=== PATIENT | male | born 1965 | race African-American/Black ===

== ENCOUNTER 2018-01-24 10:13 | Inpatient (IN) | payer OTHER ==
[2018-01-24 11:34] VITALS: BMI 28.5
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
[2018-01-24] MEDS ORDERED: NICOTINE POLACRILEX 2 MG GUM BUC PRN (14:19)
[2018-01-24] MEDS ORDERED: LOPERAMIDE HCL 2 MG CAPSULE PO PRN (14:19)
[2018-01-24] MEDS ORDERED: ACETAMINOPHEN 325 MG TABLET (FP) PO PRN (14:19)
[2018-01-24] MEDS ORDERED: MAG HYDROX/AL HYDROX/SIMETH 30 ML UNIT-DOSE CUP PO PRN (14:19)
[2018-01-24] MEDS ORDERED: MAGNESIUM HYDROX 2400MG/30ML ORAL SUSPENSION 30 ML CUP PO PRN (14:19)
[2018-01-24] MEDS ORDERED: hydrOXYzine PAMOATE 25 MG CAPSULE (FP) PO PRN (14:19)
[2018-01-24] MEDS ORDERED: chlordiazePOXIDE HCL 25 MG CAPSULE PO PRN (14:19)
[2018-01-24] MEDS ORDERED: IBUPROFEN 400 MG TABLET (FP) PO PRN (14:19)
[2018-01-24] MEDS ORDERED: P-EPHED 60MG/TRIPROLIDI 2.5MG TABLET PO PRN (14:19)
[2018-01-24] MEDS ORDERED: guaiFENesin/D-METHORPHAN HB 10 ML UNIT-DOSE CUPS PO PRN (14:19)
[2018-01-24] MEDS ORDERED: MENTHOL/PHENOL 1 EACH UD MM PRN (14:19)
[2018-01-24] MEDS ORDERED: MAGNESIUM CITRATE 300 ML BOTTLE PO PRN (14:19)
--- NOTE | 2018-01-24 14:42 | CONSULT ---
[facility] Psychiatric Consult - Data Date of interview: 01/24/18 Admission source: [facility] Identifying data: THIS 52 YEARS OLD MALE WITH HEROIN,ALCOHOL DEPENDENCE,COCAINE AND MARIJUANA DEPENDENCE,SEEKING DETOX,WITHDRAWAL SYMPTOM,. LAST DETOX IN [facility]. HYPERTENSION,BPH,BORDERLINED DM,HEPATITIS C,. POSITIVE PPD TREATED. LONGEST PERIOD OF SOBRIETY 19 MONTHS. NICOTINE DEPENDENCE Substance Abuse History: Urine Drug Screen Results: THC-Marijuana, LUIS-Cocaine, OPI-Opiates, BZO-Benzodiazepines, MTD-Methadone. - Smoking Cessation. Smoking history: Current every day smoker. Have you smoked in the past 12 months: Yes. Aproximately how many cigarettes per day: 30. Hx Chewing Tobacco Use: No. Initiated information on smoking cessation: Yes. 'Breaking Loose' booklet given : 01/24/18. - Substance & Tx. History. Hx Alcohol Use: Yes. Hx Substance Use : Yes. Substance Use Type: Alcohol, Cocaine, Heroin, Marijuana. Hx Substance Use Treatment: Yes (11/29 [facility]). - Substances Abused. Heroin. Route: Inhalation. Frequency: Daily. Amount used: 7-8 BAGS. Age of first use : 27. Date of Last Use: 01/24/18. Alcohol. Route: Oral. Frequency: Daily. Amount used: 7/25OZ BEER. Age of first use: 15. Date of Last Use: . Cocaine. Route: Inhalation. Frequency: Daily. Amount used: 100$. Age of first use: 28. Date of Last Use: 01/23/18. Marijuana/Hashish. Route : Smoking. Frequency: 1-2 times per week. Amount used: 40$. Age of first use : 17. Date of Last Use: 01/23/18 Additional Comment: Urine Drug Screen Results: THC-Marijuana, LUIS-Cocaine, OPI- Opiates, BZO-Benzodiazepines, MTD-Methadone
[2018-01-24] MEDS ORDERED: METHADONE HCL 10 MG TABLET (FOR DETOX USE ONLY) PO ONE ×2 (15:10→23:00)
[2018-01-24] MEDS ORDERED: chlordiazePOXIDE HCL 25 MG CAPSULE PO ONE (15:10)
[2018-01-24 17:18] LABS: URINE APPEARANCE CLEAR; URINE BILIRUBIN NEGATIVE (NEGATIVE); URINE BLOOD NEGATIVE (NEGATIVE); URINE COLOR YELLOW; URINE GLUCOSE (UA) NEGATIVE (NEGATIVE); URINE KETONE TRACE (NEGATIVE); URINE LEUK ESTERASE NEGATIVE (NEGATIVE); URINE NITRITE NEGATIVE (NEGATIVE); URINE PROTEIN NEGATIVE (NEGATIVE); URINE UROBILINOGEN 4.0 E.U/dl mg/dL (0.2-1.0)
[2018-01-24] MEDS ORDERED: METHADONE HCL 10 MG TABLET (FOR DETOX USE ONLY) ONE (18:05)
[2018-01-24] MEDS: NICOTINE 21 MG/24 HOURS TOPICAL PATCH TD SCH (18:07)
[2018-01-24] MEDS: chlordiazePOXIDE HCL 25 MG CAPSULE PO SCH ×2 (18:07→23:05)
[2018-01-24] MEDS: THIAMINE HCL 100 MG TABLET (FP) PO SCH (23:05)
[2018-01-25] MEDS: chlordiazePOXIDE HCL 25 MG CAPSULE PO SCH ×4 (05:43→23:14)
[2018-01-25] MEDS ORDERED: METHADONE HCL 10 MG TABLET (FOR DETOX USE ONLY) PO SCH (10:00)
[2018-01-25 10:03] LABS: HEMATOCRIT 44.7 % (35.4-49); HEMOGLOBIN 14.8 GM/dL (11.7-16.9); MCH 29.7 pg (25.7-33.7); MEAN PLT VOLUME 10.5 fl (7.5-11.1); PLATELET COUNT 153 K/MM3 (134-434); RBC 4.96 M/mm3 (4.00-5.60); RDW 14.3 % (11.9-15.9); WHITE BLOOD COUNT 5.9 K/mm3 (4.0-10.0)
[2018-01-25] MEDS: TAMSULOSIN HCL 0.4 MG CAP.ER.24H (FP) PO SCH (10:17)
[2018-01-25] MEDS: HYDROCHLOROTHIAZIDE 25 MG TABLET (FP) PO SCH (10:17)
[2018-01-25] MEDS: ASPIRIN 81 MG CHEWABLE TABLETS PO SCH (10:18)
[2018-01-25] MEDS: PRENATAL VITAMINS W/ FOLIC ACID TABLET (FP) PO SCH (10:18)
[2018-01-25] MEDS: NICOTINE 21 MG/24 HOURS TOPICAL PATCH TD SCH (10:20)
[2018-01-25 10:25] LABS: ALBUMIN 3.2 g/dl (3.4-5.0); ANION GAP 9 (8-16); BLOOD UREA NITROGEN 14 mg/dL (7-18); CALCIUM 8.7 mg/dL (8.5-10.1); CHLORIDE 106 mmol/L (98-107); CO2 27 mmol/L (21-32); CREATININE 1.2 mg/dL (0.7-1.3); GLUCOSE,RANDOM 103 mg/dL (74-106); POTASSIUM 4.2 mmol/L (3.5-5.1); SGOT/AST 32 U/L (15-37); SGPT/ALT 36 U/L (12-78); SODIUM 142 mmol/L (136-145)
[2018-01-25 10:28] LABS: ALK PHOS 91 U/L (45-117); BILIRUBIN,TOTAL 0.5 mg/dL (0.2-1.0); TOT PROT 6.9 g/dl (6.4-8.2)
--- NOTE | 2018-01-25 10:37 | CONSULT ---
[facility] Psychiatric Consult - Data Date of interview: 01/25/18 Admission source: [facility] Identifying data: Pt. is a 52 year old single male, without kids, unemployed, and homeless. This is patient's first admission to [facility]. Pt. admitted to detox for heroin, cocaine, cannabis, and alcohol dependence. Substance Abuse History: Following information confirmed with Mr. Oropeza: - Smoking Cessation. Smoking history: Current every day smoker. Have you smoked in the past 12 months: Yes. Aproximately how many cigarettes per day: 30. Hx Chewing Tobacco Use: No. Initiated information on smoking cessation: Yes. ' Breaking Loose' booklet given: 01/24/18. - Substance & Tx. History. Hx Alcohol Use: Yes. Hx Substance Use: Yes. Substance Use Type: Alcohol, Cocaine , Heroin, Marijuana. Hx Substance Use Treatment: Yes (11/29 [facility]). - Substances Abused. Heroin. Route: Inhalation. Frequency: Daily. Amount used: 7-8 BAGS. Age of first use: 27. Date of Last Use: 01/24/18. Alcohol. Route: Oral. Frequency: Daily. Amount used: 7/25OZ BEER. Age of first use: 15. Date of Last Use: 01/24/18. Cocaine. Route: Inhalation. Frequency: Daily. Amount used: 100$. Age of first use: 28. Date of Last Use: 01/23/18. Marijuana/Hashish. Route: Smoking. Frequency: 1-2 times per week. Amount used: 40$. Age of first use: 17. Date of Last Use: 01/23/18 Medical History: Hypertension Psychiatric History: Pt. denies h/o psychiatric hospitalizations, outpatient care, and suicide attempts. Physical/Sexual Abuse/Trauma History: Denies. Mental Status Exam - Mental Status Exam Alert and Oriented to: Time, Place, Person Cognitive Function: Good Patient Appearance: Unkempt Mood: Withdrawn Affect: Mood Congruent Patient Behavior: Fatigued, Asleep (Pt. able to be awaken to complete interview. ) Speech Pattern: Delayed Voice Loudness: Normal Thought Process: Goal Oriented Thought Disorder: Not Present Hallucinations: Denies Suicidal Ideation: Denies Homicidal Ideation: Denies Insight/Judgement: Poor Sleep: Fair Appetite: Fair Muscle strength/Tone: Normal Gait/Station: Other (Did not observe patient's gait.) Psychiatric Findings - Problem List ([place] 1, 2,3) (1) Cocaine dependence Current Visit: Yes Status: Acute (2) Alcohol dependence with uncomplicated withdrawal Current Visit: Yes Status: Acute (3) Cannabis dependence Current Visit: Yes Status: Acute (4) Opioid dependence with withdrawal Current Visit: Yes Status: Acute (5) Drug-induced mood disorder Current Visit: Yes Status: Suspected - Initial Treatment Plan Initial Treatment Plan: Psychoeducation provided. Detoxification in progress. Observation.
--- NOTE | 2018-01-25 12:01 | PN ---
S CIWA - CIWA Score Nausea/Vomitin Muscle Tremors: 2 Anxiety: 2 Agitation: 2 Paroxysmal Sweats: 3 Orientation: 0-Oriented Tacttile Disturbances: 2-Mild Itch/Numbness/Burn Auditory Disturbances: 0-None Visual Disturbances: 0-None Headache: 0-None Present CIWA-Ar Total Score: 13 BHS COWS - Scale Resting Pulse: 1= [place] 81-100 Sweatin= Chills/Flushing Restless Observation: 1= Difficult to Sit Still Pupil Size: 1= Pupils >than Normal Bone or Joint Aches: 2= Severe Diffuse Aches Runny Nose/ Eye Tearin= Nasal Congestion GI Upset > 30mins: 1= Stomach Cramp Tremor Observation of Outstretched Hands: 1= Tremor [place], Not Seen Yawning Observation: 1= 1-2x During Session Anxiety or Irritability: 1=Feels Anxious/Irritable Goose Flesh Skin: 0=Smooth Skin COWS Score: 11 S Progress Note (SOAP) Subjective: interrupted sleep, sweats, lbp Objective: 01/25/18 12:00 Vital Signs Temperature 97.2 F L 01/25/18 10:35 Pulse Rate 60 01/25/18 10:35 Respiratory Rate 20 01/25/18 10:35 Blood Pressure 143/93 01/25/18 10:35 O2 Sat by Pulse Oximetry (%) Laboratory Tests 01/24/18 01/25/18 01/25/18 14:00 06:00 06:00 WBC 5.9 RBC 4.96 Hgb 14.8 Hct 44.7 MCV 90.0 MCH 29.7 MCHC 33.0 RDW 14.3 Plt Count 153 MPV 10.5 Sodium 142 Potassium 4.2 Chloride 106 Carbon Dioxide 27 Anion Gap 9 BUN 14 Creatinine 1.2 Creat Clearance w eGFR > 60 Random Glucose 103 D Calcium 8.7 Total Bilirubin 0.5 D AST 32 D ALT 36 D Alkaline Phosphatase 91 D Total Protein 6.9 Albumin 3.2 L Urine Color Yellow Urine Appearance Clear Urine pH 5.0 Ur Specific [place] 1.023 Urine Protein Negative Urine Glucose (UA) Negative Urine Ketones Trace H Urine Blood Negative Urine Nitrite Negative Urine Bilirubin Negative Urine Urobilinogen 4.0 e.u/dl Ur Leukocyte Esterase Negative RPR Titer 01/25/18 06:00 WBC RBC Hgb Hct MCV MCH MCHC RDW Plt Count MPV Sodium Potassium Chloride Carbon Dioxide Anion Gap BUN Creatinine Creat Clearance w eGFR Random Glucose Calcium Total Bilirubin AST ALT Alkaline Phosphatase Total Protein Albumin Urine Color Urine Appearance Urine pH Ur Specific [place] Urine Protein Urine Glucose (UA) Urine Ketones Urine Blood Urine Nitrite Urine Bilirubin Urine Urobilinogen Ur Leukocyte Esterase RPR Titer Nonreactive pt aox3 in nad lying in bed Assessment: 01/25/18 12:00 withdrawal sx's Plan: cont. detox increase fluids motrin prn
--- NOTE | 2018-01-25 15:11 | EKG ---
Test Reason : Blood Pressure : / mmHG Vent. Rate : 054 BPM Atrial Rate : 054 BPM P-R Int : 186 ms QRS Dur : 108 ms QT Int : 466 ms P-R-T Axes : 067 023 -39 degrees QTc Int : 441 ms SINUS BRADYCARDIA POSSIBLE LEFT ATRIAL ENLARGEMENT INFERIOR INFARCT , AGE UNDETERMINED POSSIBLE ANTERIOR INFARCT , AGE UNDETERMINED ABNORMAL ECG NO PREVIOUS ECGS AVAILABLE Confirmed by HAN FOX MD ([id number]) on 01/25/2018 3:11:40 PM Referred By: Confirmed By:HAN FOX MD
[2018-01-25] MEDS: THIAMINE HCL 100 MG TABLET (FP) PO SCH (23:14)
[2018-01-26] MEDS: chlordiazePOXIDE HCL 25 MG CAPSULE PO SCH ×2 (05:40→10:18)
[2018-01-26] MEDS: PRENATAL VITAMINS W/ FOLIC ACID TABLET (FP) PO SCH (10:17)
[2018-01-26] MEDS: ASPIRIN 81 MG CHEWABLE TABLETS PO SCH (10:17)
[2018-01-26] MEDS: NICOTINE 21 MG/24 HOURS TOPICAL PATCH TD SCH (10:18)
[2018-01-26] MEDS: TAMSULOSIN HCL 0.4 MG CAP.ER.24H (FP) PO SCH (10:18)
[2018-01-26] MEDS: METHADONE HCL 5 MG TABLET (FOR DETOX USE ONLY) PO SCH (10:18)
[2018-01-26] MEDS: HYDROCHLOROTHIAZIDE 25 MG TABLET (FP) PO SCH (10:18)
--- NOTE | 2018-01-26 14:33 | PN ---
[facility] CIWA - CIWA Score Nausea/Vomitin Muscle Tremors: 3 Anxiety: 3 Agitation: 3 Paroxysmal Sweats: 1-Minimal Palms Moist Orientation: 0-Oriented Tacttile Disturbances: 1-Very Mild Itch/Numbness Auditory Disturbances: 1-Very Mild Visual Disturbances: 0-None Headache: 2-Mild CIWA-Ar Total Score: 17 BHS COWS - Scale Resting Pulse: 0= [place] 80 or Below Sweatin= Chills/Flushing Restless Observation: 3= Extraneous Movement Pupil Size: 1= Pupils >than Normal Bone or Joint Aches: 2= Severe Diffuse Aches Runny Nose/ Eye Tearin= Runny Nose/Eyes GI Upset > 30mins: 2= Nausea/Diarrhea Tremor Observation of Outstretched Hands: 2= Slight Tremor Visible Yawning Observation: 1= 1-2x During Session Anxiety or Irritability: 2=Irritable/Anxious Goose Flesh Skin: 0=Smooth Skin COWS Score: 16 S Progress Note (SOAP) Subjective: ALERT,IRRITABLE,ANXIOUS,INTERRUPTED SLEEP,TREMOR,PAIN IN THE BODY AND BACK Objective: 01/26/18 14:30 Vital Signs Temperature 97.9 F 01/26/18 13:58 Pulse Rate 56 L 01/26/18 13:58 Respiratory Rate 18 01/26/18 13:58 Blood Pressure 140/101 01/26/18 13:58 O2 Sat by Pulse Oximetry (%) KG SINUS BRADYCARDIA, 54/PA,INVERTED T IN V6 NO CHEST PAIN,NO SOB,NO DIZZINESS Laboratory Last Values WBC 5.9 K/mm3 (4.0-10.0) 01/25/18 06:00 RBC 4.96 M/mm3 (4.00-5.60) 01/25/18 06:00 Hgb 14.8 GM/dL (11.7-16.9) 01/25/18 06:00 Hct 44.7 % (35.4-49) 01/25/18 06:00 MCV 90.0 fl (80-96) 01/25/18 06:00 MCH 29.7 pg (25.7-33.7) 01/25/18 06:00 MCHC 33.0 g/dl (32.0-35.9) 01/25/18 06:00 RDW 14.3 % (11.9-15.9) 01/25/18 06:00 Plt Count 153 K/MM3 (134-434) 01/25/18 06:00 MPV 10.5 fl (7.5-11.1) 01/25/18 06:00 Sodium 142 mmol/L (136-145) 01/25/18 06:00 Potassium 4.2 mmol/L (3.5-5.1) 01/25/18 06:00 Chloride 106 mmol/L (98-107) 01/25/18 06:00 Carbon Dioxide 27 mmol/L (21-32) 01/25/18 06:00 Anion Gap 9 (8-16) 01/25/18 06:00 BUN 14 mg/dL (7-18) 01/25/18 06:00 Creatinine 1.2 mg/dL (0.7-1.3) 01/25/18 06:00 Creat Clearance w eGFR > 60 (>60) 01/25/18 06:00 Random Glucose 103 mg/dL (74-106) D 01/25/18 06:00 Calcium 8.7 mg/dL (8.5-10.1) 01/25/18 06:00 Total Bilirubin 0.5 mg/dL (0.2-1.0) D 01/25/18 06:00 AST 32 U/L (15-37) D 01/25/18 06:00 ALT 36 U/L (12-78) D 01/25/18 06:00 Alkaline Phosphatase 91 U/L (45-117) D 01/25/18 06:00 Total Protein 6.9 g/dl (6.4-8.2) 01/25/18 06:00 Albumin 3.2 g/dl (3.4-5.0) L 01/25/18 06:00 Urine Color Yellow 01/24/18 14:00 Urine Appearance Clear 01/24/18 14:00 Urine pH 5.0 (5.0-8.0) 01/24/18 14:00 Ur Specific [place] 1.023 (1.001-1.035) 01/24/18 14:00 Urine Protein Negative (NEGATIVE) 01/24/18 14:00 Urine Glucose (UA) Negative (NEGATIVE) 01/24/18 14:00 Urine Ketones Trace (NEGATIVE) H 01/24/18 14:00 Urine Blood Negative (NEGATIVE) 01/24/18 14:00 Urine Nitrite Negative (NEGATIVE) 01/24/18 14:00 Urine Bilirubin Negative (NEGATIVE) 01/24/18 14:00 Urine Urobilinogen 4.0 e.u/dl mg/dL (0.2-1.0) 01/24/18 14:00 Ur Leukocyte Esterase Negative (NEGATIVE) 01/24/18 14:00 RPR Titer Nonreactive (NONREACTIVE) 01/25/18 06:00 Assessment: 01/26/18 14:32 WITHDRAWAL SYMPTOM Plan: CONTINUE DETOX
[2018-01-26] MEDS: chlordiazePOXIDE 5 MG CAPSULE PO SCH ×2 (18:26→22:36)
[2018-01-26] MEDS: THIAMINE HCL 100 MG TABLET (FP) PO SCH (22:36)
[2018-01-27] MEDS: chlordiazePOXIDE 5 MG CAPSULE PO SCH ×2 (06:38→10:41)
[2018-01-27] MEDS ORDERED: HYDROCHLOROTHIAZIDE 25 MG TABLET (FP) PO ONE ×2 (10:26→14:30)
--- NOTE | 2018-01-27 10:36 | PN ---
BHS Progress Note (SOAP) Subjective: sweat tremor anxiety restlessness irritable joint aches with muscle pain stuffy nose Objective: 01/27/18 10:35 Vital Signs Temperature 97.2 F L 01/27/18 09:55 Pulse Rate 61 01/27/18 09:55 Respiratory Rate 20 01/27/18 09:55 Blood Pressure 150/86 01/27/18 09:55 O2 Sat by Pulse Oximetry (%) Laboratory Last Values WBC 5.9 K/mm3 (4.0-10.0) 01/25/18 06:00 RBC 4.96 M/mm3 (4.00-5.60) 01/25/18 06:00 Hgb 14.8 GM/dL (11.7-16.9) 01/25/18 06:00 Hct 44.7 % (35.4-49) 01/25/18 06:00 MCV 90.0 fl (80-96) 01/25/18 06:00 MCH 29.7 pg (25.7-33.7) 01/25/18 06:00 MCHC 33.0 g/dl (32.0-35.9) 01/25/18 06:00 RDW 14.3 % (11.9-15.9) 01/25/18 06:00 Plt Count 153 K/MM3 (134-434) 01/25/18 06:00 MPV 10.5 fl (7.5-11.1) 01/25/18 06:00 Sodium 142 mmol/L (136-145) 01/25/18 06:00 Potassium 4.2 mmol/L (3.5-5.1) 01/25/18 06:00 Chloride 106 mmol/L (98-107) 01/25/18 06:00 Carbon Dioxide 27 mmol/L (21-32) 01/25/18 06:00 Anion Gap 9 (8-16) 01/25/18 06:00 BUN 14 mg/dL (7-18) 01/25/18 06:00 Creatinine 1.2 mg/dL (0.7-1.3) 01/25/18 06:00 Creat Clearance w eGFR > 60 (>60) 01/25/18 06:00 Random Glucose 103 mg/dL (74-106) D 01/25/18 06:00 Calcium 8.7 mg/dL (8.5-10.1) 01/25/18 06:00 Total Bilirubin 0.5 mg/dL (0.2-1.0) D 01/25/18 06:00 AST 32 U/L (15-37) D 01/25/18 06:00 ALT 36 U/L (12-78) D 01/25/18 06:00 Alkaline Phosphatase 91 U/L (45-117) D 01/25/18 06:00 Total Protein 6.9 g/dl (6.4-8.2) 01/25/18 06:00 Albumin 3.2 g/dl (3.4-5.0) L 01/25/18 06:00 Urine Color Yellow 01/24/18 14:00 Urine Appearance Clear 01/24/18 14:00 Urine pH 5.0 (5.0-8.0) 01/24/18 14:00 Ur Specific [place] 1.023 (1.001-1.035) 01/24/18 14:00 Urine Protein Negative (NEGATIVE) 01/24/18 14:00 Urine Glucose (UA) Negative (NEGATIVE) 01/24/18 14:00 Urine Ketones Trace (NEGATIVE) H 01/24/18 14:00 Urine Blood Negative (NEGATIVE) 01/24/18 14:00 Urine Nitrite Negative (NEGATIVE) 01/24/18 14:00 Urine Bilirubin Negative (NEGATIVE) 01/24/18 14:00 Urine Urobilinogen 4.0 e.u/dl mg/dL (0.2-1.0) 01/24/18 14:00 Ur Leukocyte Esterase Negative (NEGATIVE) 01/24/18 14:00 RPR Titer Nonreactive (NONREACTIVE) 01/25/18 06:00 lab noted Assessment: 01/27/18 10:35 withdrawal sx 01/27/18 10:35 hypertension Plan: continue detox patient wants to take hctz at 0700 begin amlodipine 5 mg po daily at 1400 hold if systolic below 110
[2018-01-27] MEDS: METHADONE HCL 5 MG TABLET (FOR DETOX USE ONLY) PO SCH (10:40)
[2018-01-27] MEDS: TAMSULOSIN HCL 0.4 MG CAP.ER.24H (FP) PO SCH (10:40)
[2018-01-27] MEDS: ASPIRIN 81 MG CHEWABLE TABLETS PO SCH (10:40)
[2018-01-27] MEDS: PRENATAL VITAMINS W/ FOLIC ACID TABLET (FP) PO SCH (10:40)
[2018-01-27] MEDS: NICOTINE 21 MG/24 HOURS TOPICAL PATCH TD SCH (10:41)
[2018-01-27] MEDS: HYDROCHLOROTHIAZIDE 25 MG TABLET (FP) PO SCH (12:14)
[2018-01-27] MEDS ORDERED: amLODIPine BESYLATE 5 MG TABLET (FP) PO SCH (14:00)
[2018-01-27] MEDS: chlordiazePOXIDE HCL 10 MG CAPSULE PO SCH ×2 (17:38→22:14)
[2018-01-27] MEDS: THIAMINE HCL 100 MG TABLET (FP) PO SCH (22:14)
[2018-01-28] MEDS: chlordiazePOXIDE HCL 10 MG CAPSULE PO SCH ×2 (06:07→10:00)
[2018-01-28 07:04] VITALS: BP 138/80; PULSE 52; TEMP 97.5
[2018-01-28] MEDS: HCTZ PO SCH ×2 (07:43→09:59)
--- NOTE | 2018-01-28 09:19 | DS ---
[facility] Detox Discharge Summary Admission Date: 01/24/18 Discharge Date: 01/28/18 - History Present History: Alcohol Dependence, Opioid Dependence Additional Comments: 52 years old male admitted for alcohol and opiate detox, reports feeling better denies withdrawal sx wants to go back to work and community support meeting for sobriety patient is alert oriented x 3 steady gait denies pain no acute distress cardiac s1s2 lung clear bilaterally abdomen soft none tenderness extremities full range of motion - Physical Exam Results Vital Signs: Vital Signs Temperature 97.5 F L 01/28/18 07:04 Pulse Rate 52 L 01/28/18 07:04 Respiratory Rate 01/28/18 07:04 Blood Pressure 138/80 01/28/18 07:04 O2 Sat by Pulse Oximetry (%) Pertinent Admission Physical Exam Findings: withdrawal sx Vital Signs Temperature 97.5 F L 01/28/18 07:04 Pulse Rate 52 L 01/28/18 07:04 Respiratory Rate 01/28/18 07:04 Blood Pressure 138/80 01/28/18 07:04 O2 Sat by Pulse Oximetry (%) Laboratory Last Values WBC 5.9 K/mm3 (4.0-10.0) 01/25/18 06:00 RBC 4.96 M/mm3 (4.00-5.60) 01/25/18 06:00 Hgb 14.8 GM/dL (11.7-16.9) 01/25/18 06:00 Hct 44.7 % (35.4-49) 01/25/18 06:00 MCV 90.0 fl (80-96) 01/25/18 06:00 MCH 29.7 pg (25.7-33.7) 01/25/18 06:00 MCHC 33.0 g/dl (32.0-35.9) 01/25/18 06:00 RDW 14.3 % (11.9-15.9) 01/25/18 06:00 Plt Count 153 K/MM3 (134-434) 01/25/18 06:00 MPV 10.5 fl (7.5-11.1) 01/25/18 06:00 Sodium 142 mmol/L (136-145) 01/25/18 06:00 Potassium 4.2 mmol/L (3.5-5.1) 01/25/18 06:00 Chloride 106 mmol/L (98-107) 01/25/18 06:00 Carbon Dioxide 27 mmol/L (21-32) 01/25/18 06:00 Anion Gap 9 (8-16) 01/25/18 06:00 BUN 14 mg/dL (7-18) 01/25/18 06:00 Creatinine 1.2 mg/dL (0.7-1.3) 01/25/18 06:00 Creat Clearance w eGFR > 60 (>60) 01/25/18 06:00 Random Glucose 103 mg/dL (74-106) D 01/25/18 06:00 Calcium 8.7 mg/dL (8.5-10.1) 01/25/18 06:00 Total Bilirubin 0.5 mg/dL (0.2-1.0) D 01/25/18 06:00 AST 32 U/L (15-37) D 01/25/18 06:00 ALT 36 U/L (12-78) D 01/25/18 06:00 Alkaline Phosphatase 91 U/L (45-117) D 01/25/18 06:00 Total Protein 6.9 g/dl (6.4-8.2) 01/25/18 06:00 Albumin 3.2 g/dl (3.4-5.0) L 01/25/18 06:00 Urine Color Yellow 01/24/18 14:00 Urine Appearance Clear 01/24/18 14:00 Urine pH 5.0 (5.0-8.0) 01/24/18 14:00 Ur Specific [place] 1.023 (1.001-1.035) 01/24/18 14:00 Urine Protein Negative (NEGATIVE) 01/24/18 14:00 Urine Glucose (UA) Negative (NEGATIVE) 01/24/18 14:00 Urine Ketones Trace (NEGATIVE) H 01/24/18 14:00 Urine Blood Negative (NEGATIVE) 01/24/18 14:00 Urine Nitrite Negative (NEGATIVE) 01/24/18 14:00 Urine Bilirubin Negative (NEGATIVE) 01/24/18 14:00 Urine Urobilinogen 4.0 e.u/dl mg/dL (0.2-1.0) 01/24/18 14:00 Ur Leukocyte Esterase Negative (NEGATIVE) 01/24/18 14:00 RPR Titer Nonreactive (NONREACTIVE) 01/25/18 06:00 lab noted - Treatment Hospital Course: Detox Protocol Followed, Detoxed Safely, Responded well, Discharged Condition Good, Rehab Referral Accepted Patient has Accepted a Rehab Referral to: [facility] - Medication Discharge Medications: Ambulatory Orders Aspirin [ASA -] 81 mg PO DAILY 05/19/15 Hydrochlorothiazide [Hctz -] 25 mg PO DAILY #30 tablet 01/28/18 Tamsulosin HCl [Flomax] 0.4 mg PO DAILY #30 cap.er.24h 01/28/18 - Diagnosis (1) BPH (benign prostatic hyperplasia) Current Visit: Yes Status: Chronic Qualifiers: Lower urinary tract symptom presence: symptoms present Lower urinary tract symptom detail: post-void dribbling Qualified Code(s): N40.1 - Benign prostatic hyperplasia with lower urinary tract symptoms; N39.43 - Post-void dribbling; N39.43 - Post-void dribbling (2) Opioid dependence with withdrawal Current Visit: Yes Status: Acute (3) Alcohol dependence with uncomplicated withdrawal Current Visit: Yes Status: Acute (4) Hepatitis C Current Visit: Yes Status: Chronic Qualifiers: Viral hepatitis chronicity: chronic - AMA Did Patient Leave Against Medical Advice: No
[2018-01-28] MEDS: PRENATAL VITAMINS W/ FOLIC ACID TABLET (FP) PO SCH (09:59)
[2018-01-28] MEDS: TAMSULOSIN HCL 0.4 MG CAP.ER.24H (FP) PO SCH (09:59)
[2018-01-28] MEDS: NICOTINE 21 MG/24 HOURS TOPICAL PATCH TD SCH (09:59)
[2018-01-28] MEDS: ASPIRIN 81 MG CHEWABLE TABLETS PO SCH (09:59)
[2018-01-28] MEDS ORDERED: METHADONE HCL 10 MG TABLET (FOR DETOX USE ONLY) PO SCH (10:00)
[2018-01-29] MEDS ORDERED: METHADONE HCL 5 MG TABLET (FOR DETOX USE ONLY) PO SCH (06:00)
== END 2018-01-28 09:11 | disposition home or self-care (01) | DRG 773 ==
LOC: YASAS 10:13 → Y6N 14:37
PROVIDERS: ADMIT Internal Medicine; ATTEND Internal Medicine
PROC: HZ2ZZZZ Detoxification Services for Substance Abuse Treatment (ICD-10-PCS; principal; 2018-01-24)
DX: F11.23 Opioid dependence with withdrawal (principal); F10.230 Alcohol dependence with withdrawal, uncomplicated; F14.20 Cocaine dependence, uncomplicated; F12.20 Cannabis dependence, uncomplicated; F19.24 Other psychoactive substance dependence with psychoactive substance-induced mood disorder; B18.2 Chronic viral hepatitis C; N40.1 Benign prostatic hyperplasia with lower urinary tract symptoms; N39.43 Post-void dribbling; Z59.0 Homelessness
CPT/HCPCS: 36415; 71046-TC-FY; 80053; 81003; 85027; 86593; 93005; 93010

== ENCOUNTER 2018-08-24 12:51 | Inpatient (IN) | payer OTHER ==
[2018-08-24 13:09] VITALS: BMI 22.2
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
[2018-08-24] MEDS ORDERED: METHADONE HCL 10 MG TABLET (FOR DETOX USE ONLY) PO ONE ×2 (13:32→23:00)
[2018-08-24] MEDS ORDERED: MAGNESIUM CITRATE 300 ML BOTTLE PO PRN (13:32)
[2018-08-24] MEDS ORDERED: chlordiazePOXIDE HCL 25 MG CAPSULE PO ONE (13:32)
[2018-08-24] MEDS ORDERED: guaiFENesin/D-METHORPHAN HB 10 ML UNIT-DOSE CUPS PO PRN (13:32)
[2018-08-24] MEDS ORDERED: chlordiazePOXIDE HCL 25 MG CAPSULE PO PRN (13:32)
[2018-08-24] MEDS ORDERED: MENTHOL/PHENOL 1 EACH UD MM PRN (13:32)
[2018-08-24] MEDS ORDERED: P-EPHED 60MG/TRIPROLIDI 2.5MG TABLET PO PRN (13:32)
[2018-08-24] MEDS ORDERED: MAGNESIUM HYDROX 2400MG/30ML ORAL SUSPENSION 30 ML CUP PO PRN (13:32)
[2018-08-24] MEDS ORDERED: NICOTINE POLACRILEX 4 MG GUM BUC PRN (13:32)
[2018-08-24] MEDS ORDERED: MAG HYDROX/AL HYDROX/SIMETH 30 ML UNIT-DOSE CUP PO PRN (13:32)
[2018-08-24] MEDS ORDERED: LOPERAMIDE HCL 2 MG CAPSULE PO PRN (13:32)
[2018-08-24] MEDS ORDERED: hydrOXYzine PAMOATE 25 MG CAPSULE (FP) PO PRN (13:32)
[2018-08-24] MEDS ORDERED: METHADONE HCL 10 MG TABLET (FOR DETOX USE ONLY) ONE (18:05)
[2018-08-24] MEDS: chlordiazePOXIDE HCL 25 MG CAPSULE PO SCH ×2 (18:17→22:29)
[2018-08-24] MEDS: ASPIRIN 81 MG CHEWABLE TABLETS PO SCH (18:23)
[2018-08-24] MEDS: CEPHALEXIN MONOHYDRATE 500 MG CAPSULE (UD) PO SCH ×2 (18:23→22:29)
[2018-08-24] MEDS: SILVER SULFADIAZINE 1% TOP CREAM 50 GM JAR TP SCH ×2 (18:24→22:30)
[2018-08-24] MEDS ORDERED: diphenhydrAMINE HCL 25 MG CAPSULE (FP) PO PRN (19:51)
[2018-08-24] MEDS ORDERED: MELATONIN 5 MG TABLETS PO PRN (22:00)
[2018-08-24] MEDS: THIAMINE HCL 100 MG TABLET (FP) PO SCH (22:29)
[2018-08-24] MEDS: HYDROCORTISONE 0.5% TOPICAL CREAM 30 GM TUBE TP SCH (22:30)
[2018-08-25] MEDS: chlordiazePOXIDE HCL 25 MG CAPSULE PO SCH ×4 (05:59→23:03)
[2018-08-25] MEDS ORDERED: METHADONE HCL 10 MG TABLET (FOR DETOX USE ONLY) PO SCH (10:00)
[2018-08-25] MEDS: TAMSULOSIN HCL 0.4 MG CAP PO SCH (10:33)
[2018-08-25] MEDS: PRENATAL VITAMINS W/ FOLIC ACID TABLET (FP) PO SCH (10:33)
[2018-08-25] MEDS: HYDROCORTISONE 0.5% TOPICAL CREAM 30 GM TUBE TP SCH ×2 (10:33→23:03)
[2018-08-25] MEDS: CEPHALEXIN MONOHYDRATE 500 MG CAPSULE (UD) PO SCH ×2 (10:33→23:09)
[2018-08-25] MEDS: ASPIRIN 81 MG CHEWABLE TABLETS PO SCH (10:33)
[2018-08-25] MEDS: HYDROCHLOROTHIAZIDE 25 MG TABLET (FP) PO SCH (10:33)
[2018-08-25] MEDS: ACETAMINOPHEN 325 MG TABLET (FP) PO PRN ×2 (10:36→23:05)
--- NOTE | 2018-08-25 10:49 | EKG ---
Test Reason : Blood Pressure : / mmHG Vent. Rate : 046 BPM Atrial Rate : 046 BPM P-R Int : 164 ms QRS Dur : 100 ms QT Int : 500 ms P-R-T Axes : 066 041 -57 degrees QTc Int : 437 ms POOR DATA QUALITY, INTERPRETATION MAY BE ADVERSELY AFFECTED SINUS BRADYCARDIA POSSIBLE LEFT ATRIAL ENLARGEMENT T WAVE ABNORMALITY, CONSIDER LATERAL ISCHEMIA ABNORMAL ECG Confirmed by HAN FOX MD ([id number]) on 08/25/2018 10:49:11 AM Referred By: Nita Hale Confirmed By:HAN FOX MD
[2018-08-25 11:08] LABS: HEMATOCRIT 41.5 % (35.4-49); HEMOGLOBIN 13.4 GM/dL (11.7-16.9); MCH 30.3 pg (25.7-33.7); MCHC 32.3 g/dl (32.0-35.9); MEAN CELL VOLUME 93.6 fl (80-96); MEAN PLT VOLUME 9.9 fl (7.5-11.1); PLATELET COUNT 181 K/MM3 (134-434); RBC 4.43 M/mm3 (4.00-5.60); RDW 13.9 % (11.9-15.9); WHITE BLOOD COUNT 5.5 K/mm3 (4.0-10.0)
[2018-08-25 11:50] LABS: ALBUMIN 2.5 g/dl (3.4-5.0); ALK PHOS 105 U/L (45-117); ANION GAP 6 MMOL/L (8-16); BILIRUBIN,TOTAL 0.2 mg/dL (0.2-1); BLOOD UREA NITROGEN 14 mg/dL (7-18); CALCIUM 8.4 mg/dL (8.5-10.1); CHLORIDE 109 mmol/L (98-107); CO2 28 mmol/L (21-32); GLUCOSE,RANDOM 115 mg/dL (74-106); POTASSIUM 4.1 mmol/L (3.5-5.1); SGOT/AST 13 U/L (15-37); SGPT/ALT 18 U/L (13-61); SODIUM 143 mmol/L (136-145); TOT PROT 5.8 g/dl (6.4-8.2)
[2018-08-25 11:59] LABS: URINE APPEARANCE CLEAR; URINE BILIRUBIN NEGATIVE (<2.0 mg/dL); URINE COLOR AMBER; URINE GLUCOSE (UA) NEGATIVE (NEGATIVE); URINE KETONE NEGATIVE (NEGATIVE); URINE LEUK ESTERASE NEGATIVE (NEGATIVE); URINE NITRITE NEGATIVE (NEGATIVE); URINE PROTEIN NEGATIVE (NEGATIVE); URINE UROBILINOGEN 4.0 E.U/dl mg/dL (0.2-1.0)
[2018-08-25] MEDS ORDERED: FLU VACCINE QUAD 60 MCG/0.5 ML (MDV 18-19) IM ONE (12:00)
[2018-08-25] MEDS: SILVER SULFADIAZINE 1% TOP CREAM 50 GM JAR TP SCH ×2 (12:03→23:03)
--- NOTE | 2018-08-25 17:14 | PN ---
[facility] CIWA - CIWA Score Nausea/Vomitin Muscle Tremors: 4-Moderate,w/Arms Extend Anxiety: 4-Mod. Anxious/Guarded Agitation: 4-Moderately Restless Paroxysmal Sweats: 3 Orientation: 0-Oriented Tacttile Disturbances: 0-None Auditory Disturbances: 0-None Visual Disturbances: 0-None Headache: 0-None Present CIWA-Ar Total Score: 18 S COWS - Scale Resting Pulse: 0= RI 80 or Below Sweatin= Chills/Flushing Restless Observation: 3= Extraneous Movement Pupil Size: 1= Pupils >than Normal Bone or Joint Aches: 2= Severe Diffuse Aches Runny Nose/ Eye Tearin= Runny Nose/Eyes GI Upset > 30mins: 2= Nausea/Diarrhea Tremor Observation of Outstretched Hands: 2= Slight Tremor Visible Yawning Observation: 1= 1-2x During Session Anxiety or Irritability: 2=Irritable/Anxious Goose Flesh Skin: 0=Smooth Skin COWS Score: 16 [facility] Progress Note (SOAP) Subjective: Sweating, chills Objective: 08/25/18 17:10 Last Vital Signs Temp Pulse Resp BP Pulse Ox 98.6 F 78 18 168/98 08/25/18 14:00 08/25/18 14:00 08/25/18 14:00 08/25/18 14:00 HTN: on med Laboratory Tests 08/25/18 08/25/18 08/25/18 07:30 07:30 07:30 WBC 5.5 RBC 4.43 Hgb 13.4 Hct 41.5 MCV 93.6 MCH 30.3 MCHC 32.3 RDW 13.9 Plt Count 181 MPV 9.9 Sodium 143 Potassium 4.1 Chloride 109 H Carbon Dioxide 28 Anion Gap 6 L BUN 14 Creatinine 1.0 Creat Clearance w eGFR > 60 Random Glucose 115 H Calcium 8.4 L Total Bilirubin 0.2 AST 13 L ALT 18 Alkaline Phosphatase 105 Total Protein 5.8 L Albumin 2.5 L Urine Color Elaine Urine Appearance Clear Urine pH 6.0 Ur Specific [place] 1.024 Urine Protein Negative Urine Glucose (UA) Negative Urine Ketones Negative Urine Blood Negative Urine Nitrite Negative Urine Bilirubin Negative Urine Urobilinogen 4.0 e.u/dl Ur Leukocyte Esterase Negative RPR Titer 08/25/18 07:30 WBC RBC Hgb Hct MCV MCH MCHC RDW Plt Count MPV Sodium Potassium Chloride Carbon Dioxide Anion Gap BUN Creatinine Creat Clearance w eGFR Random Glucose Calcium Total Bilirubin AST ALT Alkaline Phosphatase Total Protein Albumin Urine Color Urine Appearance Urine pH Ur Specific [place] Urine Protein Urine Glucose (UA) Urine Ketones Urine Blood Urine Nitrite Urine Bilirubin Urine Urobilinogen Ur Leukocyte Esterase RPR Titer Nonreactive Labs reviewed Assessment: 08/25/18 17:12 Withdrawal sxs HTN, uncontrolled Plan: Continue detox Uncontrolled HTN: continue HCTZ 25mg PO daily, add clonidine 0.1mg PO q8hr prn, consider adding another antihypertensive medication daily if warranted
[2018-08-25] MEDS: cloNIDine HCL 0.1 MG TABLET PO PRN (17:59)
[2018-08-25] MEDS: THIAMINE HCL 100 MG TABLET (FP) PO SCH (23:03)
[2018-08-26] MEDS: chlordiazePOXIDE HCL 25 MG CAPSULE PO SCH ×2 (05:51→10:31)
[2018-08-26] MEDS: ACETAMINOPHEN 325 MG TABLET (FP) PO PRN ×2 (05:51→10:34)
[2018-08-26] MEDS: cloNIDine HCL 0.1 MG TABLET PO PRN ×2 (07:29→17:06)
[2018-08-26] MEDS: METHADONE HCL 5 MG TABLET (FOR DETOX USE ONLY) PO SCH (10:30)
[2018-08-26] MEDS: ASPIRIN 81 MG CHEWABLE TABLETS PO SCH (10:30)
[2018-08-26] MEDS: CEPHALEXIN MONOHYDRATE 500 MG CAPSULE (UD) PO SCH ×2 (10:30→23:34)
[2018-08-26] MEDS: PRENATAL VITAMINS W/ FOLIC ACID TABLET (FP) PO SCH (10:30)
[2018-08-26] MEDS: HYDROCHLOROTHIAZIDE 25 MG TABLET (FP) PO SCH (10:30)
[2018-08-26] MEDS: SILVER SULFADIAZINE 1% TOP CREAM 50 GM JAR TP SCH ×2 (10:31→23:35)
[2018-08-26] MEDS: HYDROCORTISONE 0.5% TOPICAL CREAM 30 GM TUBE TP SCH ×2 (10:31→23:59)
[2018-08-26] MEDS: TAMSULOSIN HCL 0.4 MG CAP PO SCH (10:33)
--- NOTE | 2018-08-26 13:51 | PN ---
[facility] CIWA - CIWA Score Nausea/Vomitin Muscle Tremors: 3 Anxiety: 3 Agitation: 3 Paroxysmal Sweats: 3 Orientation: 0-Oriented Tacttile Disturbances: 0-None Auditory Disturbances: 0-None Visual Disturbances: 0-None Headache: 1-Very Mild CIWA-Ar Total Score: 15 S Progress Note (SOAP) Subjective: Legs hurting, chills, interrupted sleep Objective: 08/26/18 13:48 Last Vital Signs Temp Pulse Resp BP Pulse Ox 97.2 F L 59 L 18 164/99 08/26/18 13:34 08/26/18 13:34 08/26/18 13:34 08/26/18 13:34 HTN noted Laboratory Tests 08/25/18 08/25/18 08/25/18 07:30 07:30 07:30 WBC 5.5 RBC 4.43 Hgb 13.4 Hct 41.5 MCV 93.6 MCH 30.3 MCHC 32.3 RDW 13.9 Plt Count 181 MPV 9.9 Sodium 143 Potassium 4.1 Chloride 109 H Carbon Dioxide 28 Anion Gap 6 L BUN 14 Creatinine 1.0 Creat Clearance w eGFR > 60 Random Glucose 115 H Calcium 8.4 L Total Bilirubin 0.2 AST 13 L ALT 18 Alkaline Phosphatase 105 Total Protein 5.8 L Albumin 2.5 L Urine Color Elaine Urine Appearance Clear Urine pH 6.0 Ur Specific [place] 1.024 Urine Protein Negative Urine Glucose (UA) Negative Urine Ketones Negative Urine Blood Negative Urine Nitrite Negative Urine Bilirubin Negative Urine Urobilinogen 4.0 e.u/dl Ur Leukocyte Esterase Negative RPR Titer 08/25/18 07:30 WBC RBC Hgb Hct MCV MCH MCHC RDW Plt Count MPV Sodium Potassium Chloride Carbon Dioxide Anion Gap BUN Creatinine Creat Clearance w eGFR Random Glucose Calcium Total Bilirubin AST ALT Alkaline Phosphatase Total Protein Albumin Urine Color Urine Appearance Urine pH Ur Specific [place] Urine Protein Urine Glucose (UA) Urine Ketones Urine Blood Urine Nitrite Urine Bilirubin Urine Urobilinogen Ur Leukocyte Esterase RPR Titer Nonreactive Labs reviewed Assessment: 08/26/18 13:51 Withdrawal sxs Plan: Continue detox Encouraged PO water intake
[2018-08-26] MEDS: chlordiazePOXIDE 5 MG CAPSULE PO SCH ×2 (17:07→23:34)
[2018-08-26] MEDS: THIAMINE HCL 100 MG TABLET (FP) PO SCH (23:34)
[2018-08-27] MEDS: chlordiazePOXIDE 5 MG CAPSULE PO SCH ×2 (06:17→10:36)
[2018-08-27] MEDS: PRENATAL VITAMINS W/ FOLIC ACID TABLET (FP) PO SCH (10:35)
[2018-08-27] MEDS: ASPIRIN 81 MG CHEWABLE TABLETS PO SCH (10:35)
[2018-08-27] MEDS: TAMSULOSIN HCL 0.4 MG CAP PO SCH (10:35)
[2018-08-27] MEDS: HYDROCORTISONE 0.5% TOPICAL CREAM 30 GM TUBE TP SCH ×2 (10:36→22:28)
[2018-08-27] MEDS: METHADONE HCL 5 MG TABLET (FOR DETOX USE ONLY) PO SCH (10:36)
[2018-08-27] MEDS: HYDROCHLOROTHIAZIDE 25 MG TABLET (FP) PO SCH (10:36)
[2018-08-27] MEDS: CEPHALEXIN MONOHYDRATE 500 MG CAPSULE (UD) PO SCH ×2 (10:36→22:16)
[2018-08-27] MEDS: SILVER SULFADIAZINE 1% TOP CREAM 50 GM JAR TP SCH ×2 (10:36→22:28)
--- NOTE | 2018-08-27 13:13 | PN ---
[facility] Progress Note (SOAP) Subjective: Sweating, interrupted sleep Objective: 08/27/18 13:12 Last Vital Signs Temp Pulse Resp BP Pulse Ox 99.7 F H 60 18 133/83 08/27/18 10:11 08/27/18 10:11 08/27/18 10:11 08/27/18 10:11 Laboratory Tests 08/25/18 08/25/18 08/25/18 07:30 07:30 07:30 WBC 5.5 RBC 4.43 Hgb 13.4 Hct 41.5 MCV 93.6 MCH 30.3 MCHC 32.3 RDW 13.9 Plt Count 181 MPV 9.9 Sodium 143 Potassium 4.1 Chloride 109 H Carbon Dioxide 28 Anion Gap 6 L BUN 14 Creatinine 1.0 Creat Clearance w eGFR > 60 Random Glucose 115 H Calcium 8.4 L Total Bilirubin 0.2 AST 13 L ALT 18 Alkaline Phosphatase 105 Total Protein 5.8 L Albumin 2.5 L Urine Color Elaine Urine Appearance Clear Urine pH 6.0 Ur Specific [place] 1.024 Urine Protein Negative Urine Glucose (UA) Negative Urine Ketones Negative Urine Blood Negative Urine Nitrite Negative Urine Bilirubin Negative Urine Urobilinogen 4.0 e.u/dl Ur Leukocyte Esterase Negative RPR Titer 08/25/18 07:30 WBC RBC Hgb Hct MCV MCH MCHC RDW Plt Count MPV Sodium Potassium Chloride Carbon Dioxide Anion Gap BUN Creatinine Creat Clearance w eGFR Random Glucose Calcium Total Bilirubin AST ALT Alkaline Phosphatase Total Protein Albumin Urine Color Urine Appearance Urine pH Ur Specific [place] Urine Protein Urine Glucose (UA) Urine Ketones Urine Blood Urine Nitrite Urine Bilirubin Urine Urobilinogen Ur Leukocyte Esterase RPR Titer Nonreactive Labs reviewed Assessment: 08/27/18 13:12 Withdrawal symptoms Plan: Continue detox Encouraged PO water intake
[2018-08-27] MEDS: chlordiazePOXIDE HCL 10 MG CAPSULE PO SCH ×2 (17:27→22:16)
[2018-08-27] MEDS: ACETAMINOPHEN 325 MG TABLET (FP) PO PRN (17:30)
[2018-08-27] MEDS ORDERED: IBUPROFEN 400 MG TABLET (FP) PO PRN ×2 (18:46)
[2018-08-27] MEDS: THIAMINE HCL 100 MG TABLET (FP) PO SCH (22:16)
[2018-08-27] MEDS: cloNIDine HCL 0.1 MG TABLET PO PRN (22:16)
[2018-08-28] MEDS: chlordiazePOXIDE HCL 10 MG CAPSULE PO SCH ×2 (05:51→10:32)
[2018-08-28] MEDS ORDERED: METHADONE HCL 10 MG TABLET (FOR DETOX USE ONLY) PO SCH (10:00)
[2018-08-28] MEDS ORDERED: cloNIDine HCL 0.1 MG TABLET PO PRN (10:02)
[2018-08-28] MEDS: PRENATAL VITAMINS W/ FOLIC ACID TABLET (FP) PO SCH (10:32)
[2018-08-28] MEDS: HYDROCHLOROTHIAZIDE 25 MG TABLET (FP) PO SCH (10:32)
[2018-08-28] MEDS: ASPIRIN 81 MG CHEWABLE TABLETS PO SCH (10:32)
[2018-08-28] MEDS: CEPHALEXIN MONOHYDRATE 500 MG CAPSULE (UD) PO SCH ×2 (10:32→22:30)
[2018-08-28] MEDS: ACETAMINOPHEN 325 MG TABLET (FP) PO PRN (10:32)
[2018-08-28] MEDS: TAMSULOSIN HCL 0.4 MG CAP PO SCH (10:33)
[2018-08-28] MEDS: SILVER SULFADIAZINE 1% TOP CREAM 50 GM JAR TP SCH ×2 (10:33→22:29)
[2018-08-28] MEDS: HYDROCORTISONE 0.5% TOPICAL CREAM 30 GM TUBE TP SCH ×2 (10:33→22:29)
--- NOTE | 2018-08-28 14:41 | PN ---
[facility] Progress Note (SOAP) Subjective: Interrupted sleep, sweating, restless, anxious Objective: 08/28/18 14:37 Last Vital Signs Temp Pulse Resp BP Pulse Ox 98.4 F 69 18 143/91 08/28/18 11:01 08/28/18 11:01 08/28/18 11:01 08/28/18 11:01 Elevated B/P noted (denies htn) Laboratory Tests 08/25/18 08/25/18 08/25/18 07:30 07:30 07:30 WBC 5.5 RBC 4.43 Hgb 13.4 Hct 41.5 MCV 93.6 MCH 30.3 MCHC 32.3 RDW 13.9 Plt Count 181 MPV 9.9 Sodium 143 Potassium 4.1 Chloride 109 H Carbon Dioxide 28 Anion Gap 6 L BUN 14 Creatinine 1.0 Creat Clearance w eGFR > 60 Random Glucose 115 H Calcium 8.4 L Total Bilirubin 0.2 AST 13 L ALT 18 Alkaline Phosphatase 105 Total Protein 5.8 L Albumin 2.5 L Urine Color Elaine Urine Appearance Clear Urine pH 6.0 Ur Specific [place] 1.024 Urine Protein Negative Urine Glucose (UA) Negative Urine Ketones Negative Urine Blood Negative Urine Nitrite Negative Urine Bilirubin Negative Urine Urobilinogen 4.0 e.u/dl Ur Leukocyte Esterase Negative RPR Titer 08/25/18 07:30 WBC RBC Hgb Hct MCV MCH MCHC RDW Plt Count MPV Sodium Potassium Chloride Carbon Dioxide Anion Gap BUN Creatinine Creat Clearance w eGFR Random Glucose Calcium Total Bilirubin AST ALT Alkaline Phosphatase Total Protein Albumin Urine Color Urine Appearance Urine pH Ur Specific [place] Urine Protein Urine Glucose (UA) Urine Ketones Urine Blood Urine Nitrite Urine Bilirubin Urine Urobilinogen Ur Leukocyte Esterase RPR Titer Nonreactive Labs reviewed Assessment: 08/28/18 14:38 Withdrawal symptoms Noted with elevated b/p Plan: Continue detox Elevated blood pressure: most likely due to withdrawal, encouraged PO water intake, continue clonidine prn
[2018-08-28] MEDS: THIAMINE HCL 100 MG TABLET (FP) PO SCH (22:29)
[2018-08-29] MEDS ORDERED: METHADONE HCL 5 MG TABLET (FOR DETOX USE ONLY) PO SCH (06:00)
--- NOTE | 2018-08-29 10:16 | DS ---
[facility] Detox Discharge Summary Admission Date: 08/24/18 Discharge Date: 08/29/18 - History Present History: Alcohol Dependence, Cannabis Dependence, Cocaine Dependence, Opioid Dependence Pertinent Past History: BPH HTN - Physical Exam Results Vital Signs: Vital Signs Temperature 97.4 F L 08/29/18 06:32 Pulse Rate 46 L 08/29/18 06:32 Respiratory Rate 18 08/29/18 06:32 Blood Pressure 123/75 08/29/18 06:32 O2 Sat by Pulse Oximetry (%) Pertinent Admission Physical Exam Findings: Withdrawal symptoms Laboratory Tests 08/25/18 08/25/18 08/25/18 07:30 07:30 07:30 WBC 5.5 RBC 4.43 Hgb 13.4 Hct 41.5 MCV 93.6 MCH 30.3 MCHC 32.3 RDW 13.9 Plt Count 181 MPV 9.9 Sodium 143 Potassium 4.1 Chloride 109 H Carbon Dioxide 28 Anion Gap 6 L BUN 14 Creatinine 1.0 Creat Clearance w eGFR > 60 Random Glucose 115 H Calcium 8.4 L Total Bilirubin 0.2 AST 13 L ALT 18 Alkaline Phosphatase 105 Total Protein 5.8 L Albumin 2.5 L Urine Color Elaine Urine Appearance Clear Urine pH 6.0 Ur Specific [place] 1.024 Urine Protein Negative Urine Glucose (UA) Negative Urine Ketones Negative Urine Blood Negative Urine Nitrite Negative Urine Bilirubin Negative Urine Urobilinogen 4.0 e.u/dl Ur Leukocyte Esterase Negative RPR Titer 08/25/18 07:30 WBC RBC Hgb Hct MCV MCH MCHC RDW Plt Count MPV Sodium Potassium Chloride Carbon Dioxide Anion Gap BUN Creatinine Creat Clearance w eGFR Random Glucose Calcium Total Bilirubin AST ALT Alkaline Phosphatase Total Protein Albumin Urine Color Urine Appearance Urine pH Ur Specific [place] Urine Protein Urine Glucose (UA) Urine Ketones Urine Blood Urine Nitrite Urine Bilirubin Urine Urobilinogen Ur Leukocyte Esterase RPR Titer Nonreactive Labs reviewed - Treatment Hospital Course: Detox Protocol Followed, Detoxed Safely, Responded well, Discharged Condition Good, Rehab Referral Accepted - Medication Discharge Medications: Ambulatory Orders Aspirin [ASA -] 81 mg PO DAILY 05/19/15 Hydrochlorothiazide [Hctz -] 25 mg PO DAILY #30 tablet 01/28/18 Tamsulosin HCl [Flomax] 0.4 mg PO DAILY #30 cap.er.[id number] 01/28/18 Cetirizine HCl [Zyrtec -] 10 mg PO DAILY 08/24/18 - Diagnosis (1) Nicotine dependence Current Visit: Yes Status: Chronic Qualifiers: Nicotine product type: cigarettes Substance use status: uncomplicated Qualified Code(s): F17.210 - Nicotine dependence, cigarettes, uncomplicated (2) Alcohol dependence with uncomplicated withdrawal Current Visit: Yes Status: Acute (3) BPH (benign prostatic hyperplasia) Current Visit: Yes Status: Chronic Qualifiers: Lower urinary tract symptom presence: symptoms present Lower urinary tract symptom detail: urinary hesitancy Qualified Code(s): N40.1 - Benign prostatic hyperplasia with lower urinary tract symptoms; R39.11 - Hesitancy of micturition (4) Cannabis dependence Current Visit: Yes Status: Chronic (5) Essential hypertension Current Visit: Yes Status: Chronic (6) Opioid dependence with withdrawal Current Visit: Yes Status: Acute (7) Cocaine dependence Current Visit: Yes Status: Chronic Qualifiers: Substance use status: uncomplicated Qualified Code(s): F14.20 - Cocaine dependence, uncomplicated (8) Elevated blood pressure reading without diagnosis of hypertension Current Visit: Yes Status: Acute - AMA Did Patient Leave Against Medical Advice: No (Patient admitted to [facility])
[2018-08-29] MEDS: ASPIRIN 81 MG CHEWABLE TABLETS PO SCH (10:41)
[2018-08-29] MEDS: PRENATAL VITAMINS W/ FOLIC ACID TABLET (FP) PO SCH (10:41)
[2018-08-29] MEDS: CEPHALEXIN MONOHYDRATE 500 MG CAPSULE (UD) PO SCH (10:41)
[2018-08-29] MEDS: TAMSULOSIN HCL 0.4 MG CAP PO SCH (10:41)
[2018-08-29] MEDS: HYDROCHLOROTHIAZIDE 25 MG TABLET (FP) PO SCH (10:41)
[2018-08-29] MEDS: SILVER SULFADIAZINE 1% TOP CREAM 50 GM JAR TP SCH (10:42)
[2018-08-29] MEDS: HYDROCORTISONE 0.5% TOPICAL CREAM 30 GM TUBE TP SCH (10:42)
[2018-08-29 10:49] VITALS: BP 90/61; PULSE 74; TEMP 98.6
== END 2018-08-29 13:10 | disposition home or self-care (01) | DRG 773 ==
LOC: YASAS 12:51 → Y3N 15:53
PROC: HZ2ZZZZ Detoxification Services for Substance Abuse Treatment (ICD-10-PCS; principal; 2018-08-24)
DX: F11.23 Opioid dependence with withdrawal (principal); F10.230 Alcohol dependence with withdrawal, uncomplicated; F14.20 Cocaine dependence, uncomplicated; F12.20 Cannabis dependence, uncomplicated; F17.210 Nicotine dependence, cigarettes, uncomplicated; I10 Essential (primary) hypertension; N40.1 Benign prostatic hyperplasia with lower urinary tract symptoms; I51.7 Cardiomegaly; L08.89 Other specified local infections of the skin and subcutaneous tissue; Z91.14 Patient's other noncompliance with medication regimen
CPT/HCPCS: 36415; 80053; 81003; 85027; 86593; 93005; 93010; J0735